=== PATIENT | female | born 1975 | race African-American/Black ===

== ENCOUNTER 2020-10-02 21:33 | Emergency (ER) | payer BC, OTHER ==
[~2020-10-02] VITALS: Ht 167.6 cm; Wt 118.0 kg
[2020-10-02 22:12] LABS: CLARITY URINE CLOUDY (CLEAR); COLOR URINE YELLOW (YELLOW); KETONES URINE NEGATIVE (NEGATIVE); LEUKOCYTE ESTERASE URINE 2+ (NEGATIVE); NITRITE URINE NEGATIVE (NEGATIVE); OCCULT BLOOD URINE 2+ (NEGATIVE); PROTEIN URINE 1+ (NEGATIVE); SPECIFIC GRAVITY URINE 1.018 (1.005-1.030); UROBILINOGEN URINE 0.2 E.U./dL (0.2-1.0)
[2020-10-02] MEDS ORDERED: IBUPROFEN 600MG TABLET PO ONE (22:15)
[2020-10-02] MEDS ORDERED: AMOX-424 MT (23:02)
[2020-10-02] MEDS ORDERED: IBUP-2029 MT (23:02)
[2020-10-02 23:24] VITALS: BP 135/88
== END 2020-10-02 23:30 | disposition home or self-care (01) ==
LOC: ER 21:33
DX: N12 Tubulo-interstitial nephritis, not specified as acute or chronic (principal); F41.9 Anxiety disorder, unspecified; Z79.899 Other long term (current) drug therapy
CPT/HCPCS: 81003; 81025; 93005; 99284